=== PATIENT | male | born 1970 | race Asian ===

== ENCOUNTER 2018-07-04 12:23 | Day surgery (SDC) | payer OTHER ==
[~2018-07-04] VITALS: Ht 170.2 cm; Wt 57.0 kg
[2018-07-04] MEDS ORDERED: VITAMIN D (13:04)
[2018-07-04 13:06] VITALS: BP 107/67; PULSE 50; RESP 18; Ht 170.2 cm; Wt 57.0 kg
[2018-07-04] MEDS ORDERED: LIDOCAINE 100 MG SYRINGE ONE (14:37)
[2018-07-04] MEDS ORDERED: PROPOFOL 20 ML ONE (14:37)
[2018-07-04 15:48] VITALS: BP 89/69; RESP 20
== END 2018-07-04 15:04 | disposition home or self-care (01) ==
LOC: GIL 12:23 → EDBD 14:00 → GIL 15:04
PROVIDERS: ATTEND Internal Medicine Gastroenterology
DX: Z12.11 Encounter for screening for malignant neoplasm of colon (principal)
CPT/HCPCS: 45378; J2001